=== PATIENT | male | born 1965 | race Caucasian/White ===

== ENCOUNTER 2021-11-12 20:44 | Emergency (ER) | payer OTHER, SELFPAY ==
[2021-11-12] MEDS ORDERED: Morphine 4 MG/ML VIAL ONE (22:24)
[2021-11-12] MEDS ORDERED: Ondansetron ODT 4 MG TAB ONE (22:24)
== END 2021-11-12 22:45 | disposition home or self-care (01) ==
LOC: CSHERS 20:44
DX: S43.101A Unspecified dislocation of right acromioclavicular joint, initial encounter (principal); I10 Essential (primary) hypertension; E11.9 Type 2 diabetes mellitus without complications; E78.5 Hyperlipidemia, unspecified; Z86.73 Personal history of transient ischemic attack (TIA), and cerebral infarction without residual deficits; Z79.84 Long term (current) use of oral hypoglycemic drugs; Z79.82 Long term (current) use of aspirin; Z79.899 Other long term (current) drug therapy; Z87.891 Personal history of nicotine dependence; W01.0XXA Fall on same level from slipping, tripping and stumbling without subsequent striking against object, initial encounter
CPT/HCPCS: 96374; J2270; Q0162